=== PATIENT | female | born 1970 | race Caucasian/White ===

== ENCOUNTER 2017-08-26 16:01 | Inpatient (IN) | payer BC ==
[2017-08-26] MEDS: D5W-0.45 NACL + KCL 20 MEQ 1,000 ML IV (17:25)
[2017-08-26] MEDS ORDERED: NACL 0.9% 3 ML SYG IV (17:30)
[2017-08-26] MEDS ORDERED: HYDROCODONE/APAP (5/325) TAB PO (17:30)
[2017-08-26] MEDS ORDERED: ONDANSETRON 4 MG INJ IV (17:30)
[2017-08-26] MEDS: PIPER-TAZO 2.25 GM (PMX) 50 ML IVPB (23:05)
[2017-08-26] MEDS: SOD CHLORIDE 0.9% 1,000 ML IV (23:06)
[2017-08-27] MEDS: SOD CHLORIDE 0.9% 1,000 ML IV ×2 (04:00→11:02)
[2017-08-27] MEDS: PIPER-TAZO 2.25 GM (PMX) 50 ML IVPB (05:42)
[2017-08-27 05:53] LABS: ADD MAN DIFF? NO
[2017-08-27 06:02] LABS: WHITE BLOOD COUNT 6.9 10^3/ul (4.8-10.8)
[2017-08-27 06:02] LABS: BASOPHIL # 0.1 10^3/ul (0.0-0.1); BASOPHILS % 0.7 % (0.0-2.0); EOSINOPHILS # 0.2 10^3/ul (0.0-0.5); EOSINOPHILS % 3.1 % (0.0-7.0); HEMATOCRIT 36.4 % (37.0-47.0); HEMOGLOBIN 12.2 g/dl (12.0-16.0); LYMPHOCYTES # 1.8 10^3/ul (0.8-2.9); LYMPHOCYTES % 25.9 % (15.0-51.0); MEAN CORPUSCULAR HEMOGLOBIN 31.9 pg (29.0-33.0); MEAN CORPUSCULAR HGB CONC 33.5 g/dl (32.0-37.0); MEAN CORPUSCULAR VOLUME 95.3 fl (82.0-101.0); MEAN PLATELET VOLUME 10.1 fl (7.4-10.4); MONOCYTE # 0.7 10^3/ul (0.3-0.9); MONOCYTES % 10.2 % (0.0-11.0); NEUTROPHIL # 4.1 10^3/ul (1.6-7.5); PLATELET COUNT 236 10^3/UL (140-415); RED BLOOD COUNT 3.82 10^6/ul (4.20-5.40); RED CELL DISTRIBUTION WIDTH 12.7 % (11.5-14.5)
[2017-08-27 06:16] LABS: INR 1.05; PROTIME 13.8 Sec (11.9-14.9); PT RATIO 1.1
[2017-08-27 06:41] LABS: ALANINE AMINOTRANSFERASE 39 IU/L (13-69); ALBUMIN 2.9 g/dl (3.3-4.9); ALBUMIN/GLOBULIN RATIO 0.96; ALKALINE PHOSPHATASE 73 IU/L (42-121); ANION GAP 13 (8-16); ASPARTATE AMINO TRANSFERASE 47 IU/L (15-46); BILIRUBIN,INDIRECT 0.5 mg/dl (0-1.1); BILIRUBIN,TOTAL 0.5 mg/dl (0.2-1.3); BLOOD UREA NITROGEN 6 mg/dl (7-20); CARBON DIOXIDE 22 mmol/L (21-31); CHLORIDE 110 mmol/L (97-110); CREATININE 0.58 mg/dl (0.44-1.00); GLUCOSE 91 mg/dl (70-220); POTASSIUM 3.6 mmol/L (3.5-5.1); SODIUM 141 mmol/L (135-144); TOTAL PROTEIN 5.9 g/dl (6.1-8.1)
[2017-08-27 06:42] LABS: PHOSPHORUS 3.1 mg/dl (2.5-4.9)
[2017-08-27 06:42] LABS: CHOL/HDL RATIO 3.5 RATIO; CHOLESTEROL 103 mg/dl (100-200); HDL CHOLESTEROL 29 mg/dl (34-88); LDL CHOLESTEROL,CALCULATED 59 mg/dl; MAGNESIUM 1.8 mg/dl (1.7-2.5); TRIGLYCERIDES 74 mg/dl (0-149)
[2017-08-27 06:58] LABS: FREE T4 (FREE THYROXINE) 0.85 ng/dl (0.64-1.79)
[2017-08-27 06:58] LABS: THYROID STIMULATING HORMONE 0.461 MIU/L (0.465-4.680)
[2017-08-27 07:15] LABS: HEMOGLOBIN A1C 5.7 % (0-5.9)
[2017-08-27] MEDS: HYDROmorphONE 0.5 MG/0.5 ML SYG IV ×4 (07:42→19:01)
[2017-08-28] MEDS: SOD CHLORIDE 0.9% 1,000 ML IV ×3 (02:42→15:22)
[2017-08-28 04:55] LABS: ADD MAN DIFF? NO
[2017-08-28 04:57] LABS: BASOPHIL # 0.1 10^3/ul (0.0-0.1); BASOPHILS % 0.8 % (0.0-2.0); EOSINOPHILS # 0.3 10^3/ul (0.0-0.5); EOSINOPHILS % 3.7 % (0.0-7.0); HEMATOCRIT 37.3 % (37.0-47.0); HEMOGLOBIN 12.2 g/dl (12.0-16.0); LYMPHOCYTES # 2.5 10^3/ul (0.8-2.9); LYMPHOCYTES % 33.1 % (15.0-51.0); MEAN CORPUSCULAR HEMOGLOBIN 31.5 pg (29.0-33.0); MEAN CORPUSCULAR HGB CONC 32.7 g/dl (32.0-37.0); MEAN CORPUSCULAR VOLUME 96.4 fl (82.0-101.0); MONOCYTE # 0.5 10^3/ul (0.3-0.9); MONOCYTES % 7.1 % (0.0-11.0); NEUTROPHIL # 4.1 10^3/ul (1.6-7.5); PLATELET COUNT 224 10^3/UL (140-415); RED BLOOD COUNT 3.87 10^6/ul (4.20-5.40); RED CELL DISTRIBUTION WIDTH 13.1 % (11.5-14.5)
[2017-08-28 04:57] LABS: WHITE BLOOD COUNT 7.5 10^3/ul (4.8-10.8)
[2017-08-28 05:22] LABS: ALANINE AMINOTRANSFERASE 33 IU/L (13-69); ALBUMIN 3.1 g/dl (3.3-4.9); ALBUMIN/GLOBULIN RATIO 1.03; ALKALINE PHOSPHATASE 71 IU/L (42-121); ANION GAP 11 (8-16); ASPARTATE AMINO TRANSFERASE 21 IU/L (15-46); BILIRUBIN,INDIRECT 0.5 mg/dl (0-1.1); BILIRUBIN,TOTAL 0.5 mg/dl (0.2-1.3); BLOOD UREA NITROGEN 6 mg/dl (7-20); CALCIUM 8.6 mg/dl (8.4-10.2); CARBON DIOXIDE 24 mmol/L (21-31); CHLORIDE 112 mmol/L (97-110); CREATININE 0.59 mg/dl (0.44-1.00); GLUCOSE 90 mg/dl (70-220); POTASSIUM 4.5 mmol/L (3.5-5.1); SODIUM 142 mmol/L (135-144); TOTAL PROTEIN 6.1 g/dl (6.1-8.1)
[2017-08-28 05:29] LABS: PHOSPHORUS 2.8 mg/dl (2.5-4.9)
[2017-08-28 05:29] LABS: MAGNESIUM 1.9 mg/dl (1.7-2.5)
[2017-08-28] MEDS: HYDROmorphONE 0.5 MG/0.5 ML SYG IV (15:21)
[2017-08-28] MEDS: FAMOTIDINE 20 MG INJ IV ×2 (17:26→21:00)
[2017-08-29 05:03] LABS: ADD MAN DIFF? NO
[2017-08-29 05:10] LABS: WHITE BLOOD COUNT 6.9 10^3/ul (4.8-10.8)
[2017-08-29 05:10] LABS: BASOPHIL # 0.1 10^3/ul (0.0-0.1); BASOPHILS % 0.9 % (0.0-2.0); EOSINOPHILS # 0.3 10^3/ul (0.0-0.5); EOSINOPHILS % 3.6 % (0.0-7.0); HEMATOCRIT 36.9 % (37.0-47.0); HEMOGLOBIN 12.3 g/dl (12.0-16.0); LYMPHOCYTES # 2.4 10^3/ul (0.8-2.9); LYMPHOCYTES % 34.8 % (15.0-51.0); MEAN CORPUSCULAR HEMOGLOBIN 31.6 pg (29.0-33.0); MEAN CORPUSCULAR HGB CONC 33.3 g/dl (32.0-37.0); MEAN CORPUSCULAR VOLUME 94.9 fl (82.0-101.0); MONOCYTE # 0.6 10^3/ul (0.3-0.9); MONOCYTES % 9.2 % (0.0-11.0); NEUTROPHIL # 3.6 10^3/ul (1.6-7.5); NEUTROPHILS % 51.4 % (39.0-77.0); PLATELET COUNT 229 10^3/UL (140-415); RED BLOOD COUNT 3.89 10^6/ul (4.20-5.40); RED CELL DISTRIBUTION WIDTH 12.9 % (11.5-14.5)
[2017-08-29] MEDS: SOD CHLORIDE 0.9% 1,000 ML IV (05:14)
[2017-08-29 05:27] LABS: MAGNESIUM 1.9 mg/dl (1.7-2.5)
[2017-08-29 05:27] LABS: PHOSPHORUS 2.9 mg/dl (2.5-4.9)
[2017-08-29 05:33] LABS: ALANINE AMINOTRANSFERASE 33 IU/L (13-69); ALBUMIN 3.3 g/dl (3.3-4.9); ALKALINE PHOSPHATASE 79 IU/L (42-121); ANION GAP 15 (8-16); ASPARTATE AMINO TRANSFERASE 18 IU/L (15-46); BILIRUBIN,INDIRECT 0.4 mg/dl (0-1.1); BILIRUBIN,TOTAL 0.4 mg/dl (0.2-1.3); BLOOD UREA NITROGEN 5 mg/dl (7-20); CALCIUM 8.5 mg/dl (8.4-10.2); CARBON DIOXIDE 25 mmol/L (21-31); CHLORIDE 111 mmol/L (97-110); CREATININE 0.61 mg/dl (0.44-1.00); GLUCOSE 89 mg/dl (70-220); POTASSIUM 4.4 mmol/L (3.5-5.1); SODIUM 147 mmol/L (135-144); TOTAL PROTEIN 6.3 g/dl (6.1-8.1)
[2017-08-29] MEDS: FAMOTIDINE 20 MG INJ IV (09:32)
== END 2017-08-29 15:05 | disposition home or self-care (01) | DRG 446 ==
LOC: MS1 18:37 → E/R 16:01 → MS1 17:23
PROVIDERS: Internal Medicine
PROC: CF1C1ZZ Planar Nuclear Medicine Imaging of Hepatobiliary System, All using Technetium 99m (Tc-99m) (ICD-10-PCS; principal; 2017-08-27)
DX: K80.20 Calculus of gallbladder without cholecystitis without obstruction (principal); Z72.0 Tobacco use
CPT/HCPCS: 78226; 80053; 80061; 83036; 83735; 84100; 84439; 84443; 85025; 85610; 85730; 96360; 99285-25

== ENCOUNTER 2017-09-30 10:03 | Day surgery (SDC) | payer BC ==
[2017-09-30] MEDS: BUPIVACAINE 0.25% (MPF) 30 ML INJ INJ
[2017-09-30] MEDS: SOD CHLORIDE 0.9% 1,000 ML IV (11:00)
[2017-09-30 11:16] LABS: ADD MAN DIFF? NO
[2017-09-30 11:20] LABS: WHITE BLOOD COUNT 6.2 10^3/ul (4.8-10.8)
[2017-09-30 11:20] LABS: BASOPHIL # 0.1 10^3/ul (0.0-0.1); BASOPHILS % 1.1 % (0.0-2.0); EOSINOPHILS # 0.2 10^3/ul (0.0-0.5); EOSINOPHILS % 3.2 % (0.0-7.0); HEMATOCRIT 40.9 % (37.0-47.0); LYMPHOCYTES # 1.7 10^3/ul (0.8-2.9); LYMPHOCYTES % 27.1 % (15.0-51.0); MEAN CORPUSCULAR HEMOGLOBIN 31.9 pg (29.0-33.0); MEAN CORPUSCULAR HGB CONC 34.2 g/dl (32.0-37.0); MEAN CORPUSCULAR VOLUME 93.2 fl (82.0-101.0); MEAN PLATELET VOLUME 9.7 fl (7.4-10.4); MONOCYTE # 0.5 10^3/ul (0.3-0.9); MONOCYTES % 7.9 % (0.0-11.0); NEUTROPHIL # 3.7 10^3/ul (1.6-7.5); NEUTROPHILS % 60.5 % (39.0-77.0); PLATELET COUNT 251 10^3/UL (140-415); RED BLOOD COUNT 4.39 10^6/ul (4.20-5.40); RED CELL DISTRIBUTION WIDTH 12.2 % (11.5-14.5)
[2017-09-30 11:37] LABS: ALANINE AMINOTRANSFERASE 23 IU/L (13-69); ALBUMIN/GLOBULIN RATIO 1.17; ALKALINE PHOSPHATASE 82 IU/L (42-121); ANION GAP 17 (8-16); ASPARTATE AMINO TRANSFERASE 14 IU/L (15-46); BILIRUBIN,INDIRECT 0.6 mg/dl (0-1.1); BILIRUBIN,TOTAL 0.6 mg/dl (0.2-1.3); CARBON DIOXIDE 25 mmol/L (21-31); CHLORIDE 110 mmol/L (97-110); GLUCOSE 93 mg/dl (70-220); TOTAL PROTEIN 7.4 g/dl (6.1-8.1)
[2017-09-30 11:43] LABS: BLOOD UREA NITROGEN 7 mg/dl (7-20); CALCIUM 8.7 mg/dl (8.4-10.2); CREATININE 0.57 mg/dl (0.44-1.00); SODIUM 148 mmol/L (135-144)
[2017-09-30 11:50] LABS: INR 0.97
[2017-09-30] MEDS ORDERED: MIDAZOLAM 1 MG/ML 2 ML INJ (13:48)
[2017-09-30] MEDS ORDERED: PROPOFOL 20 ML (13:48)
[2017-09-30] MEDS ORDERED: ROCURONIUM 50 MG INJ (13:48)
[2017-09-30] MEDS ORDERED: ROPIVACAINE 0.5 % 30 ML VIAL (13:48)
[2017-09-30] MEDS ORDERED: FENTAnyl 50 MCG/ML VIAL (13:48)
[2017-09-30] MEDS ORDERED: CEFAZOLIN 1 GM INJ (13:52)
[2017-09-30] MEDS: CEFAZOLIN 1 GM/50 ML (PMX) 50 ML IVPB (14:30)
[2017-09-30] MEDS ORDERED: ONDANSETRON 4 MG INJ (14:36)
[2017-09-30] MEDS ORDERED: METOCLOPRAMIDE 10 MG INJ (14:36)
[2017-09-30] MEDS ORDERED: BUPIVACAINE 0.25% (MPF) 30 ML INJ (14:36)
[2017-09-30] MEDS ORDERED: SUGAMMADEX SODIUM 200 MG/2 ML VIAL IV (14:36)
[2017-09-30] MEDS ORDERED: KETOROLAC 30 MG INJ (14:36)
[2017-09-30] MEDS ORDERED: DEXAMETHASONE 4 MG/ML 1 ML INJ (14:36)
[2017-09-30] MEDS ORDERED: ACETAMINOPHEN 1000MG/100ML IV 100 ML (14:44)
[2017-09-30] MEDS ORDERED: MEPERIDINE 25 MG INJ IV (15:00)
[2017-09-30] MEDS ORDERED: HYDROCODONE/APAP (5/325) TAB PO (15:00)
[2017-09-30] MEDS ORDERED: FENTAnyl 50 MCG/ML VIAL IV ×3 (15:00)
[2017-09-30] MEDS ORDERED: EPHEDrine SULFATE 50 MG/5 ML SYG IV (15:00)
[2017-09-30] MEDS ORDERED: LABETALOL HCL 20MG INJ IV (15:00)
[2017-09-30] MEDS ORDERED: DIPHENHYDRAMINE 50 MG INJ IV (15:00)
[2017-09-30] MEDS ORDERED: METOCLOPRAMIDE 10 MG INJ IV (15:00)
[2017-09-30] MEDS ORDERED: HYDROmorphONE (0.2 MG/ML) 10ML SYG IV ×2 (15:00)
[2017-09-30] MEDS ORDERED: hydrALAzine 20 MG INJ IV (15:00)
[2017-09-30] MEDS ORDERED: LABETALOL HCL 20MG INJ (15:01)
[2017-09-30] MEDS: HYDROmorphONE (0.2 MG/ML) 10ML SYG IV (16:18)
[2017-09-30] MEDS: ONDANSETRON 4 MG INJ IV (16:18)
== END 2017-09-30 17:00 | disposition home or self-care (01) ==
LOC: SDS 10:03
DX: K80.10 Calculus of gallbladder with chronic cholecystitis without obstruction (principal)
CPT/HCPCS: 47562; 80053; 85025; 85610; 85730; 88304